=== PATIENT | female | born 1965 | race Caucasian/White ===

== ENCOUNTER 2020-08-19 11:33 | Emergency (ER) | payer BC, SELFPAY ==
[2020-08-19 11:41] VITALS: BP 155/86; PULSE 83; RESP 12; TEMP 37.3; O2SAT 95; BMI 26.6
--- NOTE | 2020-08-19 12:27 | DI.US.S_ITS ---
PROCEDURE: US PERIPH VENOUS LOW EXTREM LT INDICATIONS: LEFT LOWER EXTREMITY PAIN AND SWELLING TECHNIQUE: Real-time imaging, as well as color and pulse Doppler interrogation, were performed of the lower extremity deep veins from the inguinal ligament to the popliteal fossa. COMPARISON: None. FINDINGS: The common femoral, femoral and popliteal veins are normally compressible, and free of intraluminal thrombus. Color and pulse Doppler demonstrate normal phasic intraluminal flow. There is normal augmentation response to distal compression maneuver. No focal sonographic abnormality overlying area of clinical concern of the left calf and ankle. IMPRESSION: No evidence of left lower extremity deep venous thrombosis. Dictated by: Marlon Gee D.O. on 08/19/2020 at 12:20 Approved by: Marlon Gee D.O. on 08/19/2020 at 12:26
--- NOTE | 2020-08-19 13:49 | ED_ITS ---
HPI - Extremity Problem General Chief complaint: Extremity Problem,Nontraumatic Stated complaint: poss blood clot in ankle Time Seen by Provider: 08/19/20 13:49 Source: patient Mode of arrival: Ambulatory Limitations: no limitations History of Present Illness HPI Narrative: This is a 54-year-old female comes to the emergency department with complaint of pain and discoloration in her left ankle/calf region. Patient has a history of DVT in that lower extremity after having a right lower extremity surgery with complications. Patient states that she developed DVT this was several years ago. She is no longer on anticoagulants. She does not on any regular medications. She notes that sometimes she will have discoloration that is bandlike around her lower calf but does not go to her foot. She will occasionally have numbness and but does not have any new weakness. She states being or having a lot of activity makes it worse but mild activity improves it. She has noticed it with increasing frequency. She has not had any trauma that she recalls. She does have some chronic low back pain but has not had any acute exacerbation and denies any radiation down her legs. Related Data Allergies Allergy/AdvReac Type Severity Reaction Status Date / Time No Known Drug Allergies Allergy Verified 08/19/20 11:44 Review of Systems Review of Systems ROS Unobtainable: All systems reviewed & are unremarkable except as noted in HPI and below Patient History Social History Smoking Status: Never smoker Smoking Status: Never smoker alcohol intake frequency: holidays/special occasions only Substance Use Type: does not use Exam Narrative Exam Narrative: GENERAL: Alert and oriented x three, well-nourished female in mild distress. HEENT: Head normocephalic, atraumatic, EOMI, pupils reactive, face symmetric, moist mucous membranes NECK: Supple, full range of motion CARDIOVASCULAR: Regular rate and rhythm without murmurs, rubs or gallops. RESPIRATORY: Breath sounds equal bilaterally, no wheezes rales or rhonchi. ABDOMEN: Soft, nontender. Normoactive bowel sounds all 4 quadrants. No guarding or rebound, rigidity, no mass : No CVA tenderness EXTREMITIES: Normal range of motion, no clubbing or edema. Neurovascularly intact. No bony tenderness. No edema compares of left to right. Patient has normal sensation throughout. 2+ dorsalis pedis and tibialis. Neurovascularly intact throughout the foot with cap refill less than 2 seconds. There appears to be some very slight hyperpigmentation and patchy arrangement on the lateral lower calf/ankle that is very faint. There is no pallor or cyanosis. NEUROLOGICAL: Cranial nerves II through XII grossly intact. Moving all extremities SKIN: Warm, dry, no petechiae, no rashes or lesions noted other than above. Initial Vital Signs Initial Vital Signs: Vital Signs Temperature 99.2 F 08/19/20 11:41 Pulse Rate 83 08/19/20 11:41 Respiratory Rate 12 08/19/20 11:41 Blood Pressure 155/86 H 08/19/20 11:41 Pulse Oximetry 95 08/19/20 11:41 Course Orders Ordered: ED Orders 08/19/20 12:27 US perip venous low extrem lt Stat Vital Signs Vital signs: Vital Signs - 8 hr 08/19/20 11:41 08/19/20 14:07 Temperature 99.2 F Pulse Rate 83 81 Respiratory Rate 12 18 Blood Pressure 155/86 H 143/78 H Pulse Oximetry 95 97 MDM - Extremity (Nontraumatic) Imaging Data US - DVT: Radiologist's Impression: [address] [id number] ReportSigned Patient: Sharon Salvador TMR#: [id number]: 1965Acct:[id number]/[id number] x: 54 / FDate of Service: 08/19/20Loc: EDAccession Number: [id number] Procedure: [facility] venous low extrem lt Ordering Provider: Kimmy Mliler D.O. PROCEDURE: US PERIP VENOUS LOW EXTREM LT INDICATIONS: LEFT LOWER EXTREMITY PAIN AND SWELLING TECHNIQUE: Real-time imaging, as well as color and pulse Doppler interrogation, were performed of the lower extremity deep veins from the inguinal ligament to the popliteal fossa. COMPARISON: None. FINDINGS: The common femoral, femoral and popliteal veins are normally compressible, and free of intraluminal thrombus. Color and pulse Doppler demonstrate normal phasic intraluminal flow. There is normal augmentation response to distal compression maneuver. No focal sonographic abnormality overlying area of clinical concern of the left calf and ankle. IMPRESSION: No evidence of left lower extremity deep venous thrombosis. Dictated by: Marlon Gee D.O. on 08/19/2020 at 12:20 Approved by: Marlon Gee D.O. on 08/19/2020 at 12:26 [facility] Narrative Medical decision making narrative: 54-year-old female comes in with concern for possible blood clot in her left ankle. Patient has a history of blood clot of her left lower extremity in the past after her right lower extremity surgery with multiple complications. Patient is no longer anticoagulated. She has not had any additional risk factors recently. Ultrasound was negative. She describes some skin changes that are intermittent but localized more to the calf. There is no obvious signs of infection or other changes today that would warrant further workup or treatment. She was encouraged to follow up with her primary care is these continue to be present intermittently. Discharge Plan Departure Patient Disposition: Home Clinical Impression: Leg pain Instructions: DI for Leg Pain Activity Restrictions/Additional Instructions: Follow up primary care for recheck. Included are the names some local clinics that are possible for follow-up. You can try [facility], [facility], [facility] or [facility] physicians. I recommend Tylenol up to a 1000 mg every 8 hours and or ibuprofen up to 800 mg every 8 hours. Your imaging today does not show a DVT or blood clot. I am unsure of the exact source of your discomfort. I do recommend follow-up for further evaluation. Please return for fevers, new or worsening swelling, redness or other skin changes that are concerning, new weakness, loss of sensation or inability to move your foot or leg, lightheadedness or passing out, new chest pain or shortness of breath.
[2020-08-19 14:07] VITALS: BP 143/78; PULSE 81; RESP 18; O2SAT 97
== END 2020-08-19 14:12 | disposition home or self-care (01) ==
PROVIDERS: Emergency Provider Emergency Medicine
DX: M25.572 Pain in left ankle and joints of left foot (principal)
CPT/HCPCS: 93971; 99283

== ENCOUNTER 2024-06-01 00:47 | Emergency (ER) | payer BC, SELFPAY ==
[2024-06-01] VITALS (7 sets, daily range): BP systolic 116–153; BP diastolic 70–82; PULSE 93–130; RESP 12–18; TEMP 37.6; O2SAT 95–96; BMI 29.2
--- NOTE | 2024-06-01 01:00 | DI.RAD.S_ITS ---
PROCEDURE: XR CHEST 1V INDICATIONS: suspected sepsis TECHNIQUE: One view of the chest was acquired. COMPARISON: None. FINDINGS: Surgical changes and devices: None. Lungs and pleura: Lungs are clear. No pleural effusions or pneumothorax. Mediastinum: Mediastinal contours appear normal. Heart size is normal. Bones and chest wall: No suspicious bony lesions. Overlying soft tissues appear unremarkable. IMPRESSION: No acute cardiopulmonary abnormality is seen. Approved by: Marisol Carrera M.D.,Ph.D. on 06/01/2024 at 1:53
--- NOTE | 2024-06-01 01:21 | ED_ITS ---
HPI - General Adult General Chief complaint: Urogenital-Female Stated complaint: vomiting, possible kidney stone Time Seen by Provider: 06/01/24 01:21 Source: patient Mode of arrival: Ambulatory History of Present Illness HPI narrative: 58-year-old female with history of remote kidney stone single event, complains of right flank area discomfort without trauma, multiple episodes of nausea and vomiting without black or red color, no loose stools, last bowel movement unremarkable, no injury trauma or new activities. Denies cough, shortness of breath, chest discomfort. No left sided discomfort. No history of prior cholecystectomy, appendectomy, colitis, diverticulitis. She has not had painful or frequent urination. She does not recall ovarian cyst or other gynecological problems. Related Data Allergies Allergy/AdvReac Type Severity Reaction Status Date / Time No Known Drug Allergies Allergy Verified 11/16/20 14:09 Patient History Social History (System 11/16/20 @ 14:09 by Beatrice Godinez) Smoking Status: Never smoker Smoking Status: Never smoker alcohol intake frequency: holidays/special occasions only Exam Narrative Exam Narrative: GENERAL: Well-developed patient, in mild distress. HEAD: Atraumatic. Normocephalic. EYES: Pupils equal round and reactive. Extraocular motions intact. No scleral icterus. No injection or drainage. ENT: Nose without bleeding, purulent drainage. Throat without erythema, tonsillar hypertrophy or exudate. Airway patent. NECK: Trachea midline. Non tender CARDIOVASCULAR: Regular rate and rhythm without murmurs, gallops, or rubs. RESPIRATORY: Clear to auscultation. Breath sounds equal bilaterally. No wheezes, rales, or rhonchi. GASTROINTESTINAL: Abdomen soft, non-tender, nondistended. EXTREMITIES: No edema or joint tenderness. BACK: Nontender without deformity or crepitance. No flank tenderness. NEURO: AOx3. Motor functions grossly nonfocal SKIN: No rash or erythema of visible areas Initial Vital Signs Initial Vital Signs: Vital Signs Temperature 99.7 F H 06/01/24 00:54 Pulse Rate 130 H 06/01/24 00:54 Respiratory Rate 18 06/01/24 00:54 Blood Pressure 153/75 H 06/01/24 00:54 Pulse Oximetry 95 06/01/24 00:54 Oxygen Delivery Method Room Air 06/01/24 00:54 Course Orders Ordered: ED Orders 06/01/24 01:00 XR chest 1V Stat EKG-12 Lead Stat RT Consult Eval and Treat NOW 06/01/24 01:10 Ictotest Urine Stat Urine Microscopic Stat 06/01/24 01:15 Complete Blood Count AUTO DIFF Stat Comprehensive Metabolic Panel Stat Lactate (Lactic Acid) Stat Lipase Stat PTT Partial Thromboplastin [place] Stat Procalcitonin Stat Prothrombin Time INR Stat 06/01/24 01:21 EKG-12 Lead Stat 06/01/24 01:33 Blood Culture Stat 06/01/24 01:35 CT abdomen pelvis wo con Stat Discontinued Medications Sodium Chloride (Normal Saline 0.9%) 1,000 mls @ 1,000 mls/hr IV BOLUS ONE Stop: 06/01/24 01:59 Last Infusion: 06/01/24 02:53 Dose: Infused Documented By: Admin: 06/01/24 01:29 Dose: 1,000 mls/hr Documented By: RADHA Ketorolac Tromethamine (Ketorolac 30 Mg/Ml Vial) 15 mg IV NOW ONE Stop: 06/01/24 01:37 Last Admin: 06/01/24 01:43 Dose: 15 mg Documented By: RADHA Ondansetron HCl (Ondansetron 4 Mg/2 Ml Inj) 4 mg IV NOW PRN PRN Reason: Nausea And Vomiting Last Admin: 06/01/24 01:49 Dose: 4 mg Documented By: RADHA Ondansetron HCl (Ondansetron 4 Mg Odt) 4 mg SL NOW PRN PRN Reason: Nausea And Vomiting Ondansetron HCl (Ondansetron 4 Mg Odt Prepack) 1 bottle MISC DIRECTED ONE Stop: 06/01/24 02:52 Last Admin: 06/01/24 03:07 Dose: 1 bottle Documented By: RADHA Oxycodone/Acetaminophen (Oxycodone/Apap 5/325 Prepack) 1 bottle MISC DIRECTED ONE Stop: 06/01/24 02:52 Last Admin: 06/01/24 03:07 Dose: 1 bottle Documented By: RADHA Vital Signs Vital signs: Vital Signs - 8 hr 06/01/24 00:54 06/01/24 01:18 06/01/24 01:30 Temperature 99.7 F H Pulse Rate 130 H 116 H 113 H Respiratory Rate 18 12 18 Blood Pressure 153/75 H Pulse Oximetry 95 96 96 Oxygen Delivery Method Room Air 06/01/24 01:34 06/01/24 01:34 06/01/24 02:02 Temperature Pulse Rate 105 H 96 H Respiratory Rate 15 Blood Pressure 116/70 Pulse Oximetry 96 Oxygen Delivery Method 06/01/24 02:30 06/01/24 02:47 06/01/24 02:47 Temperature Pulse Rate 97 H 93 H Respiratory Rate 17 17 Blood Pressure 118/82 Pulse Oximetry 95 96 Oxygen Delivery Method Room Air Room Air Medical Decision Making Lab Data Lab results reviewed: Yes I reviewed the patient's lab results. Lab results narrative: White blood cell count 46868, hemoglobin 15.6, platelets elevated 588,000. Lactate 1.6 normal. Basic metabolic panel unremarkable. Liver functions showed mild transaminitis, otherwise negative. Lipase normal. Urine dip negative. 06/01/24 01:15 06/01/24 01:15 Labs: Lab Results 06/01/24 06/01/24 Range/Units 01:10 01:15 WBC 18.1 H (4.5-11.0) X10^3/uL RBC 5.55 H (4.0-5.2) X10^6/uL Hgb 15.6 (12.0-16.0) g/dL Hct 47.2 H (36-46) % MCV 85.0 (80-100) fL MCH 28.2 (26-34) PG MCHC 33.2 (30-36) % RDW 16.5 H (11.6-14.8) % Plt Count 588 H (150-400) X10^3/uL Neut % (Auto) 89.6 H (50-75) % Lymph % (Auto) 4.4 L (25-40) % [place] % (Auto) 2.9 L (3-14) % Eos % (Auto) 2.5 (2-4) % Baso % (Auto) 0.6 (0-2) % Neut # (Auto) 84356 H (2272-0082) /uL Lymph # (Auto) 800 L (7336-0435) /uL [place] # (Auto) 500 (0-900) /uL Eos # (Auto) 500 H (0-450) /uL Baso # (Auto) 100 (0-100) /uL PT 12.0 (9.4-12.5) SECONDS INR 1.1 (0.9-1.3) APTT 31 (25.1-36.5) SECONDS Sodium 137 (137-145) mmol/L Potassium 4.0 (3.4-5.1) mmol/L Chloride 102 (98-107) mmol/L Carbon Dioxide 22 (22-32) mmol/L BUN 20 H (7-17) mg/dL Creatinine 0.87 (0.52-1.04) mg/dL Estimated GFR > 60 (>60) mL/min BUN/Creatinine Ratio 23.0 H (6-22) Glucose 183 H (70-100) mg/dL Lactate 1.6 (0.7-2.1) mmol/L Calcium 9.6 (8.4-10.2) mg/dL Total Bilirubin 0.6 (0.2-1.3) mg/dL AST 38 H (14-36) IU/L ALT 58 H (<35) IU/L Alkaline Phosphatase 72 (38-126) U/L Total Protein 8.5 H (6.3-8.2) g/dL Albumin 5.0 (3.5-5.0) g/dL Globulin 3.5 (1.7-4.1) g/dL Albumin/Globulin Ratio 1.4 (1.0-2.8) Lipase 181 (23-300) U/L Procalcitonin 0.796 H (<0.5) ng/mL Ur Bilirubin Confirm Negative (Negative) Urine RBC None seen (0-5/HPF) Urine WBC None seen (0-5/HPF) Ur Squamous Epith Cells 0-1 /hpf (0-5/HPF) Urine Bacteria None seen (None) Ur Culture Indicated? Cult not indicated Vol Urine Centrifuged 10ml (spun) Urine Dip Bedside Urine Glucose Negative Bedside Urine Bilirubin + 1 Bedside Urine Ketone ++ 40 Urine Specific [place] 1.015 Bedside Urine Occult Blood - Negative Bedside Urine pH 6.0 Bedside Urine Protein +/- 15 Bedside Urine Urobilinogen - Negative Bedside Urine Nitrite - Negative Bedside Urine Leukocytes - Negative Esterase Point of care testing: Urine Dip Bedside Urine Glucose Negative Bedside Urine Bilirubin + 1 Bedside Urine Ketone ++ 40 Urine Specific [place] 1.015 Bedside Urine Occult Blood - Negative Bedside Urine pH 6.0 Bedside Urine Protein +/- 15 Bedside Urine Urobilinogen - Negative Bedside Urine Nitrite - Negative Bedside Urine Leukocytes - Negative Esterase ECG Data Attestation: I personally reviewed and interpreted this ECG as follows: Interpretation: Sinus tachycardia with rate of 112, no obvious ST segment elevation or depression changes. T-wave inversion slight in lead 3 but appears upright in other contiguous inferior leads. IA 154, QRS 80, QTC 436. MDM Narrative Medical decision making narrative: 58-year-old female with nontraumatic right-sided flank discomfort, history of remote kidney stone event, multiple episodes nausea vomiting nonbloody, tachycardia on triage, normotensive, no fever on triage. No tenderness on abdominal exam. DDx consider ureteral stone, UTI/pyelonephritis, colitis, diverticulitis, biliary colic, appendicitis, bowel obstruction, musculoskeletal, gynecologic etiology, other. IV Toradol, declines opiates for now. We will add IV fluid bolus and IV Zofran. Keep NPO. CT abdomen and pelvis imaging ordered. Labs and urinalysis pending. Labs showed white blood cell count 30586, however normal lactate. CT abdomen and pelvis. Impressions: ?Right central collecting system calculus measuring 1.1 cm likely intermittently obstructing with mild right hydronephrosis. No evidence of colitis diverticulitis bowel obstruction or acute appendicitis. Incidental findings..? See teleradiology report Case discussed with Urology Dr. Encarnacion, who can see patient in close follow up. Contact information given for Dr. Encarnacion office, encouraged to call the office during regular hours later this morning, for close follow up. Patient staying local [facility], assisted home with family members. Home pack pain medication hydrocodone/APAP. Home pack ondansetron sublingual to use if needed. Encouraged to take [id number] NSAIDs as needed. Return precautions discussed. Discharge Plan Departure Patient Disposition: Home Clinical Impression: Kidney stone on right side, Right flank pain Instructions: DI for Kidney Stones Activity Restrictions/Additional Instructions: Right flank pain, history of remote kidney stone requiring lithotripsy intervention. No trauma or injury. No fever on triage. Multiple episodes of nausea and vomiting. IV fluids given for suspected dehydration by history. Screening labs unremarkable, renal function adequate. CT abdomen and pelvis showed the presence of a 1.1 cm stone within the right kidney, and some obstructive changes, but no stone was visualized within the right ureter on the way to the bladder. It is possible this appearance could have happened from passage of a 2nd stone that was quite small on already down through the bladder and out. However it is also possible that the stone within the kidney is isolating back and forth and intermittently obstructing the opening to the right kidney as well. Your pain was improved with IV Toradol. Case was discussed with on-call Urology Dr. Encarnacion, who thought that you could be discharged home, with close follow up later this week. His clinic contact information provided. Call his office later this morning during regular hours after 8:00 a.m.. You declined any pain medications further at this time. However homepack of medication Oxycodone/Tylenol given in case needed. Also antinausea medication ondansetron sublingual formulation to control nausea provided as a home pack, to use if needed. Referrals: Daniel Encarnacion DO [Physician] - Stuart Ruelas MD [Primary Care Provider] - Stand Alone Forms: Patient Portal/API/Survey
--- NOTE | 2024-06-01 01:21 | EKG_ITS ---
[place] [id number] [place] [id number] Test Date: 2024-06-01 Pat Name: Sharon Salvador Department: [facility] Room: Gender: Female Inventory Associate And Driver: MARK : 1965 Requested By: Order Number: [id number] Reading MD: Petey Medrnao Measurements Intervals [place] Rate: 112 P: 41 SC: 154 QRS: 67 QRSD: 80 T: 13 QT: 320 QTc: 436 Interpretive Statements Sinus tachycardia Possible Left atrial enlargement Electronically Signed On 06-03-2024 20:02:27 PST by Petey Medrano
[2024-06-01] MEDS: SODIUM CHLORIDE 0.9% 1,000 ML 1000 ML IV (01:29)
--- NOTE | 2024-06-01 01:35 | DI.CT.S_ITS ---
PROCEDURE: CT ABDOMEN PELVIS WO CON INDICATIONS: Flank pain, possible kidney stone TECHNIQUE: Axial sections were acquired from the lung bases to the pubic symphysis. Coronal and sagittal reformats were performed. For radiation dose reduction, the following was used: automated exposure control, adjustment of mA and/or kV according to patient size. COMPARISON: None. FINDINGS: Image quality: Diagnostic. Lower Chest: No significant findings. URINARY: Right Kidney: There is a 1.1 cm stone in the right renal pelvis, resulting in mild hydronephrosis. Right Ureter: No hydroureter. Left Kidney: No stones or hydronephrosis. Left Ureter: No hydroureter. Bladder: Normal wall thickness. No stones. ABDOMEN: Liver: No contour-deforming solid mass. Moderate hepatic steatosis. Gallbladder: No radiopaque gallstones or wall thickening. Biliary ducts: No biliary dilation. Pancreas: No ductal dilation. Spleen: Size is within normal limits. Adrenal Glands: No adrenal nodules. Stomach and Bowel: Normal colonic caliber, without significant wall thickening. Peritoneum: No abnormal intraperitoneal fluid. No free air. Ventral Wall: Ventral hernia repair. Abdominal Nodes: No enlarged retroperitoneal or mesenteric lymph nodes. Vessels: Aorta and inferior vena cava are normal in size. PELVIS: Pelvic Organs: Unremarkable. Pelvic Nodes: Unremarkable. Miscellaneous: No inguinal hernias are seen. Bones: Unremarkable. IMPRESSION: 1.1 cm stone in the right renal pelvis, resulting in mild hydronephrosis. This is probably partially obstructing and causing inflammatory change. Agree with preliminary report. Dictated by: Alfa Hartman M.D. on 06/01/2024 at 8:12 Approved by: Alfa Hartman M.D. on 06/01/2024 at 8:27
[2024-06-01 01:43] LABS: Add Manual Diff / Slide Review NO; Basophils Absolute Auto 100 /uL (0-100); Basophils Percent Auto 0.6 % (0-2); Eosinophils Absolute Auto 500 /uL (0-450); Eosinophils Percent Auto 2.5 % (2-4); Hematocrit 47.2 % (36-46); Hemoglobin 15.6 g/dL (12.0-16.0); Lymphocytes Absolute Auto 800 /uL (1100-4500); Lymphocytes Percent Auto 4.4 % (25-40); Mean Corpuscular HGB Conc 33.2 % (30-36); Mean Corpuscular Hemoglobin 28.2 PG (26-34); Monocytes Absolute Auto 500 /uL (0-900); Monocytes Percent Auto 2.9 % (3-14); Neutrophils Absolute Auto 16200 /uL (1500-7000); Neutrophils Percent Auto 89.6 % (50-75); Platelet Count 588 X10^3/uL (150-400); Red Blood Cell Count 5.55 X10^6/uL (4.0-5.2); Red Cell Distribution Width 16.5 % (11.6-14.8); White Blood Cell Count 18.1 X10^3/uL (4.5-11.0)
[2024-06-01] MEDS: KETOROLAC 30 MG/ML VIAL 15 MG IV (01:43)
[2024-06-01] MEDS: ONDANSETRON 4 MG/2 ML INJ IV (01:49)
[2024-06-01 01:52] LABS: INR 1.1 (0.9-1.3)
[2024-06-01 01:52] LABS: Bacteria Urine None Seen; Culture Indicated Urine Cult Not Indicated; Ictotest Urine Negative (Negative); RBC Urine None Seen (0-5/HPF); Squamous Epithelial Cell Urine 0-1 /HPF (0-5/HPF); Urine Volume 10mL (spun); WBC Urine None Seen (0-5/HPF)
[2024-06-01 01:54] LABS: Lactate (Lactic Acid) 1.6 mmol/L (0.7-2.1); PTT Partial Thromboplastin Tim 31 SECONDS (25.1-36.5)
[2024-06-01 01:55] LABS: Alanine Aminotransferase 58 IU/L (<35); Albumin Globulin Ratio 1.4 (1.0-2.8); Alkaline Phosphatase 72 U/L (38-126); Aspartate Aminotransferase 38 IU/L (14-36); Bilirubin Total 0.6 mg/dL (0.2-1.3); Blood Urea Nitrogen 20 mg/dL (7-17); Calcium 9.6 mg/dL (8.4-10.2); Carbon Dioxide 22 mmol/L (22-32); Chloride 102 mmol/L (98-107); Estimated Glomerular Filt Rate > 60 mL/min (>60); Globulin 3.5 g/dL (1.7-4.1); Glucose 183 mg/dL (70-100); HEMOLYSIS 19 (0-50); Lipase 181 U/L (23-300); Sodium 137 mmol/L (137-145); Total Protein 8.5 g/dL (6.3-8.2)
[2024-06-01 02:12] LABS: Procalcitonin 0.796 ng/mL (<0.5)
[2024-06-01] MEDS: ONDANSETRON 4 MG ODT PREPACK 1 BOTTLE MISC (03:07)
[2024-06-01] MEDS: OXYCODONE/APAP 5/325 PREPACK 1 BOTTLE MISC (03:07)
== END 2024-06-01 03:11 | disposition home or self-care (01) ==
PROVIDERS: Emergency Provider Emergency Medicine; Family Provider Family Medicine; PCP Family Medicine
DX: N20.0 Calculus of kidney (principal); R10.9 Unspecified abdominal pain; R11.2 Nausea with vomiting, unspecified; Z87.442 Personal history of urinary calculi; R00.0 Tachycardia, unspecified
CPT/HCPCS: 36415; 71045; 74176; 80053; 81003; 81015; 83605; 83690; 84145; 85025; 85610; 85730; 87040; 93005; 96361; 96374; 96375; 99284; J1885; J2405

== ENCOUNTER 2024-06-02 15:17 | Day surgery (SDC) | payer BC, SELFPAY ==
--- NOTE | 2024-06-02 | DI.RAD.S_ITS ---
PROCEDURE: XR ABDOMEN 1V INDICATIONS: RIGHT STENT PLACEMENT TECHNIQUE: 3 intra-operative images acquired by the Urology service. COMPARISON: None. FINDINGS/IMPRESSION: Fluoroscopy guidance was utilized by the ordering provider for right ureteral stent placement. Approved by: Adam Pugh M.D. on 06/02/2024 at 18:01
[2024-06-02 15:50] VITALS: BMI 31.8
--- NOTE | 2024-06-02 16:07 | SUR.PREOP ---
Verified verbal order for scop patch from Dr Loera due to Hx of PONV
[2024-06-02 16:08] VITALS: BP 130/78; PULSE 70; RESP 16; TEMP 36.6; O2SAT 96
[2024-06-02] MEDS: ACETAMINOPHEN 325 MG TABLET 975 MG PO (16:13)
[2024-06-02] MEDS: SCOPOLAMINE 1 PATCH TOP (16:14)
[2024-06-02] MEDS: LACTATED RINGERS 1,000 ML 42 ML IV (16:15)
[2024-06-02] MEDS: CEFAZOLIN 2 GM/100 ML PREMIX 100 ML IV (16:35)
--- NOTE | 2024-06-02 16:39 | SUR.OPER ---
Lithotomy on padded OR bed, head on pillow, arms secured on padded arm boards at <90 degrees abduction. Legs secured in padded yellow fins stirrups.
[2024-06-02] MEDS: iopamidoL 30 ML VIAL 10 ML INTRAURETH (17:06)
[2024-06-02 17:19] VITALS: BP 97/57; PULSE 74; RESP 20; TEMP 36.6; O2SAT 94
[2024-06-02 17:24] VITALS: BP 114/67; PULSE 90; RESP 15; O2SAT 95
[2024-06-02 17:29] VITALS: BP 120/67; PULSE 86; RESP 13; O2SAT 94
[2024-06-02] MEDS: OXYCODONE IR 5 MG TABLET PO (17:32)
[2024-06-02 17:34] VITALS: BP 131/74; PULSE 87; RESP 20; O2SAT 94
--- NOTE | 2024-06-02 17:38 | PM.OP.1 ---
Procedure & Clinicians Procedure: Cystoscopy Right ureteroscopy, laser lithotripsy Right retrograde ureteropyelogram Right ureteral stent placement Intraoperative interpretation of fluoroscopic images, total time < 1 hour Same procedure as scheduled: Yes Indications: 58 y/o F noted to have a 1cm right UPJ calculus on 31 May 2024 who continues to suffer from severe right flank pain w/ associated nausea and vomiting. Surgeon: Daniel Encarnacion Click Yes if Unassisted: Yes Anesthesia Type: General Operative Notes Findings: Large right UPJ calculus Closure Type: not applicable Specimen(s): other (right kidney stone) Estimated Blood Loss (mL): 2 Blood products transfused: none Procedure in detail: Procedures: 1) Cystoscopy 2) Right retrograde ureteropyelogram 3) Right ureteroscopy, laser lithotripsy 4) Right ureteral stent placement 5) Intraoperative interpretation of fluoroscopic images, < 1 hour, all images saved to PACS Indication: Patient was identified in the preoperative holding area and consent confirmed. She was then brought to the operating room where general anesthesia was induced.? She was placed in the low lithotomy position. She was then prepped and draped in the usual sterile fashion. A surgical timeout was conducted and all were in agreement. ?Access to the bladder was obtained via a 30 degree cystoscope.? Complete cystoscopy was then performed and no concerning bladder masses or lesions were appreciated.? Bilateral ureteral orifices were easily identified and noted to be orthotopic in nature.? The right ureteral orifice was then easily cannulated using a 5Fr ureteral catheter over a 0.035 sensor tip ureteral guidewire. The ureteral guidewire was advanced into the right renal pelvis and the ureteral catheter was removed. A 11/13Fr ureteral access sheath was then advanced over the ureteral guidewire and into the proximal right ureter.? The ureteral guidewire and inner obturator were then removed.? The flexible ureteroscope was then advanced through the ureteral access sheath and to the level of the right UPJ where a large stone was visualized.? Complete pyeloscopy was then performed and no other uroliths were noted.? Laser lithotripsy was then performed utilizing the 200 micron laser fiber.? All stone fragments >1mm in size were removed via the stone basket and sent for chemical analysis.? A retrograde pyelogram was then performed which noted no filling defects concerning for residual stone.? The ureteral guidewire was then readvanced through the ureteroscope and into the right renal pelvis.? The ureter was then directly visualized upon removal of the ureteroscope and ureteral access sheath and noted to be stone free.? The cystoscope was then backloaded over the ureteral guidewire and advanced into the bladder.? A 6Fr multi-length JJ ureteral stent with strings was then advanced over the ureteral guidewire.? Upon removal of the guidewire, a good curl was noted within the right renal pelvis upon fluoroscopy and visually within the bladder.? The bladder was then drained and the cystoscope was removed.? Anesthesia was reversed, she was extubated in the OR and transferred to the PACU in stable condition for recovery. Complications: none Post-operative Condition: stable Disposition: PACU Plan for aftercare: Discharge home from PACU. Will remove her right ureteral stent on the morning of 07 Jun 2024. Will have her return to Urology clinic in 3 months to review a RBUS that is performed 8 weeks after her procedure as well as to review a Litholink study.
[2024-06-02 17:39] VITALS: BP 106/65; PULSE 81; RESP 17; TEMP 36.8; O2SAT 96
[2024-06-08 13:39] LABS: Ca oxalate dihydrate 70 % (.); Ca oxalate monohydr 30 % (.); Size 2x2 mm (.)
== END 2024-06-02 18:04 | disposition home or self-care (01) ==
PROVIDERS: Family Provider Family Medicine; PCP Family Medicine; Referring Provider Urology; Visit Provider Urology
PROC: (CPT 52356; principal; 2024-06-02 16:30)
DX: N20.1 Calculus of ureter (principal)
CPT/HCPCS: 52356; 74018; 76000; 81002; 82365; 82962; C2617; J0690; J1100; J1885; J2405; J2704; J3010; Q9967